=== PATIENT | female | born 1940 | race Caucasian/White ===

== ENCOUNTER 2016-10-30 16:00 | Emergency (ER) | payer MEDICARE, BC ==
[~2016-10-30] VITALS: Ht 166.4 cm; Wt 83.9 kg
== END 2016-10-30 17:32 | disposition short-term general hospital (02) ==
LOC: ER 16:00
DX: M79.89 Other specified soft tissue disorders (principal); Z96.652 Presence of left artificial knee joint; Z88.0 Allergy status to penicillin